=== PATIENT | female | born 1940 | race Caucasian/White ===

== ENCOUNTER 2017-10-05 13:12 | Emergency (ER) | payer OTHER ==
[~2017-10-05] VITALS: Ht 147.3 cm; Wt 60.3 kg
[~2017-10-05 13:12] MED LIST: ALPRAZOLAM0.5 MG PO; APETIGEN ELIXI120 ML PO; ARICEPT10 MG; ARICEPT10 MG PO; AVAPRO75 MG; Apresoline 25MG TAB PO; Apresoline 50MG TAB PO; Aricept 10 MG TABLET PO; CARdura 4MG TABLET PO; CELEXA PO; CELEXA20 MG PO; CREON DR 24,001 EACH; Carafate Susp 1G/10ML BLIST.PACK PO; Coreg PO; Flagyl PO; GLUCOTROL10 MG; GLUCOTROL10 MG PO; GLUCOTROL5 MG/BOTTL; HUMALOG MIX 75/10 ML; HYDRALAZINE HCL50 MG; HYDRALAZINE HCL50 MG PO; IMDUR30 MG; INTEGRA F CAPS1 EACH PO; INTEGRA F CAPSULE PO; ISOSORBIDE DINI20 MG PO; ISOSORBIDE DINI30 MG PO; Isordil 10MG TAB PO; KAYEXALATE15 GM/60 M; LANTUS SOL100 UNIT/1 SUBCUTANEO; LANTUS100 U/ML; LASIX20 MG; LASIX20 MG PO; LASIX40 MG PO; LEVAQUIN500 MG PO; Lantus 1000 U/10 ML SUBCUTANEO; Lasix 20MG TAB PO; MONTELUKAST SOD10 MG PO; NEBUSAL4 ML IH; Neurin-Sl Tablet Sl SL; Neurontin PO; POM (MEDICAMENTO EN PO; PRILOSEC OTC20 MG PO; PRILOSEC20 MG; PRILOSEC20 MG PO; Protonix PO; Pulmicort 0.5 MG/2 M IH; SPIRONOLACTONE25 MG PO; SYNTHROID50 MCG; Synthroid PO; TESSALON PERLE100 M1 PO; TOPROL XL50 MG; TRAMADOL HCL-AP1 TAB; TRENTAL; TRENTAL PO; ULTRACET PO; VASOFLEX D1 CA1 EACH PO; VITAMIN B-1100 M1 PO; VITAMIN B-1100 MG PO; VITAMIN B-122500 MCG SL; XANAX0.25 MG; XARELTO 15MG TAB PO; XOPENEX0.63 MG/3 IH; ZOCOR PO; ZOCOR20 MG; ZOCOR20 MG PO; Zestril PO; [UNRECOGNIZED DRUG - OTHER]
== END 2017-10-05 18:59 | disposition home or self-care (01) ==
LOC: ER 13:12
DX: R55 Syncope and collapse (principal)

== ENCOUNTER 2017-11-23 14:05 | Inpatient (IN) | payer OTHER ==
[~2017-11-23] VITALS: Ht 147.3 cm; Wt 137.0 kg
[2017-11-28] MEDS ORDERED: NORVASC2.5 M1 PO (08:49)
[2017-11-28] MEDS ORDERED: CARVEDILOL6.25 MG PO (08:51)
[2017-11-28] MEDS ORDERED: DOXAZOSIN MESYLA4 MG PO (08:52)
== END 2017-11-28 09:29 | disposition home or self-care (01) | DRG 699 ==
LOC: MEDJ 14:05 → SEC-K 14:51 → MEDJ 19:19
PROC: 0DB68ZX Excision of Stomach, Via Natural or Artificial Opening Endoscopic, Diagnostic (ICD-10-PCS; principal; 2017-11-25)
PROC: 30233N1 Transfusion of Nonautologous Red Blood Cells into Peripheral Vein, Percutaneous Approach (ICD-10-PCS; 2017-11-25)
DX: E11.22 Type 2 diabetes mellitus with diabetic chronic kidney disease (principal); I13.0 Hypertensive heart and chronic kidney disease with heart failure and stage 1 through stage 4 chronic kidney disease, or unspecified chronic kidney disease; E11.65 Type 2 diabetes mellitus with hyperglycemia; I50.89 Other heart failure; N17.8 Other acute kidney failure; D63.1 Anemia in chronic kidney disease; Z79.4 Long term (current) use of insulin; J45.998 Other asthma; K44.9 Diaphragmatic hernia without obstruction or gangrene; J44.9 Chronic obstructive pulmonary disease, unspecified; E03.8 Other specified hypothyroidism; E86.0 Dehydration; I25.10 Atherosclerotic heart disease of native coronary artery without angina pectoris; I48.0 Paroxysmal atrial fibrillation; N18.4 Chronic kidney disease, stage 4 (severe)

== ENCOUNTER → 2018-01-17 | Emergency (ER) | payer OTHER ==
[~2018-01-17] VITALS: Ht 149.9 cm; Wt 61.7 kg
[~2018-01-17] MED LIST changes: +CARVEDILOL6.25 MG PO; +DOXAZOSIN MESYLA4 MG PO; +ELIQUIS2.5 MG; +MUPIROCIN22 GM TOP; +NORVASC2.5 M1 PO
== END | disposition home or self-care (01) ==
LOC: ER 10:30
DX: M25.561 Pain in right knee (principal); S80.01XS Contusion of right knee, sequela; W18.0 Fall due to bumping against object

== ENCOUNTER → 2018-02-24 | Emergency (ER) | payer OTHER ==
[~2018-02-24] VITALS: Ht 147.3 cm; Wt 62.1 kg
[~2018-02-24] MED LIST changes: +CARDURA XL4 MG; +COREG CR10 MG; +HYDRALAZINE HCL10 MG; +HYDRALAZINE HCL25 MG; +INTEGRA CAPSUL1 EACH; +ISOSORBIDE DINI20 MG; +LANTUS SOL100 UNIT/1; +NEURONTIN300 MG; +NORVASC2.5 M1; +PAXIL10 MG/5 ML; +SINGULAIR10 MG; +XANAX2 MG
== END | disposition left against medical advice (07) ==
LOC: ER 13:11
DX: I61.1 Nontraumatic intracerebral hemorrhage in hemisphere, cortical (principal); G93.89 Other specified disorders of brain; S00.03XA Contusion of scalp, initial encounter; W18.09XA Striking against other object with subsequent fall, initial encounter; Y93.89 Activity, other specified; Y92.018 Other place in single-family (private) house as the place of occurrence of the external cause; Y99.8 Other external cause status

== ENCOUNTER 2018-02-28 09:27 | Outpatient (CLI) | payer OTHER | END 2018-02-28 17:00 | disposition home or self-care (01) | LOC: TOM 09:27 | DX: I60.8 Other nontraumatic subarachnoid hemorrhage (principal) ==

== ENCOUNTER 2018-06-13 12:37 | Outpatient (CLI) | payer OTHER | END 2018-06-13 12:44 | disposition home or self-care (01) | LOC: RAD 12:37 | DX: I50.42 Chronic combined systolic (congestive) and diastolic (congestive) heart failure (principal); E04.2 Nontoxic multinodular goiter; R06.09 Other forms of dyspnea ==

== ENCOUNTER 2018-08-23 07:40 | Outpatient (CLI) | payer OTHER | END 2018-08-23 07:41 | disposition home or self-care (01) | LOC: SONOGRAMA 07:40 → MAMO-SONO 08:15 | DX: K80.00 Calculus of gallbladder with acute cholecystitis without obstruction (principal); N18.3 Chronic kidney disease, stage 3 (moderate); R10.11 Right upper quadrant pain ==

== ENCOUNTER 2020-06-19 06:36 | Emergency (ER) | payer OTHER ==
[~2020-06-19] VITALS: Ht 139.7 cm; Wt 75.7 kg
== END 2020-06-19 12:57 | disposition home or self-care (01) ==
LOC: ER 06:36
DX: S42.232A 3-part fracture of surgical neck of left humerus, initial encounter for closed fracture (principal); W18.39XA Other fall on same level, initial encounter; Y93.89 Activity, other specified; Y92.098 Other place in other non-institutional residence as the place of occurrence of the external cause; Y99.8 Other external cause status

== ENCOUNTER 2020-06-26 08:04 | Outpatient (CLI) | payer OTHER ==
[2020-06-26] MEDS ORDERED: CARVEDILOL6.25 MG (11:15)
[2020-06-26] MEDS ORDERED: SYNTHROID75 MCG (11:15)
[2020-06-26] MEDS ORDERED: PAXIL20 MG (11:15)
[2020-06-26] MEDS ORDERED: HYDRALAZINE HCL25 MG (11:16)
[2020-06-26] MEDS ORDERED: ISORDIL10 MG (11:16)
[2020-06-26] MEDS ORDERED: LASIX40 MG (11:16)
[2020-06-26] MEDS ORDERED: CARDURA XL4 MG (11:17)
[2020-06-26] MEDS ORDERED: CRESTOR40 MG (11:17)
[2020-06-26] MEDS ORDERED: ELIQUIS2.5 MG (11:17)
[2020-06-26] MEDS ORDERED: SINGULAIR4 M1 (11:18)
[2020-06-26] MEDS ORDERED: ARICEPT10 MG (11:18)
[2020-06-26] MEDS ORDERED: XANAX1 MG (11:18)
[2020-06-26] MEDS ORDERED: INTEGRA CAPSUL1 EACH (11:19)
[2020-06-26] MEDS ORDERED: LANTUS SOL100 UNIT/1 (11:19)
[2020-06-26] MEDS ORDERED: KAYEXALATE15 GM/60 M (11:19)
[2020-06-26] MEDS ORDERED: NEURONTIN300 MG ×2 (11:19→11:20)
[2020-06-26] MEDS ORDERED: PROBIOTIC1 EAC3 (11:21)
[2020-06-26] MEDS ORDERED: IMODIUM MULTI-1 EACH (11:21)
[2020-06-26] MEDS ORDERED: TYLENOL ARTHRI650 MG PO (16:26)
== END 2020-06-26 08:09 | disposition home or self-care (01) ==
LOC: RAD 08:04
PROVIDERS: ATTEND Orthopaedic Surgery
DX: S42.232A 3-part fracture of surgical neck of left humerus, initial encounter for closed fracture (principal)

== ENCOUNTER 2020-06-26 10:57 | Emergency (ER) | payer OTHER ==
[~2020-06-26] VITALS: Ht 157.5 cm; Wt 76.7 kg
[2020-06-26] MEDS ORDERED: PAXIL20 MG (11:15)
[2020-06-26] MEDS ORDERED: CARVEDILOL6.25 MG (11:15)
[2020-06-26] MEDS ORDERED: SYNTHROID75 MCG (11:15)
[2020-06-26] MEDS ORDERED: HYDRALAZINE HCL25 MG (11:16)
[2020-06-26] MEDS ORDERED: ISORDIL10 MG (11:16)
[2020-06-26] MEDS ORDERED: LASIX40 MG (11:16)
[2020-06-26] MEDS ORDERED: CARDURA XL4 MG (11:17)
[2020-06-26] MEDS ORDERED: ELIQUIS2.5 MG (11:17)
[2020-06-26] MEDS ORDERED: CRESTOR40 MG (11:17)
[2020-06-26] MEDS ORDERED: SINGULAIR4 M1 (11:18)
[2020-06-26] MEDS ORDERED: ARICEPT10 MG (11:18)
[2020-06-26] MEDS ORDERED: XANAX1 MG (11:18)
[2020-06-26] MEDS ORDERED: INTEGRA CAPSUL1 EACH (11:19)
[2020-06-26] MEDS ORDERED: KAYEXALATE15 GM/60 M (11:19)
[2020-06-26] MEDS ORDERED: LANTUS SOL100 UNIT/1 (11:19)
[2020-06-26] MEDS ORDERED: NEURONTIN300 MG ×2 (11:19→11:20)
[2020-06-26] MEDS ORDERED: PROBIOTIC1 EAC3 (11:21)
[2020-06-26] MEDS ORDERED: IMODIUM MULTI-1 EACH (11:21)
[2020-06-26] MEDS ORDERED: TYLENOL ARTHRI650 MG PO (16:26)
== END 2020-06-26 17:53 | disposition home or self-care (01) ==
LOC: ER 10:57
DX: S00.83XA Contusion of other part of head, initial encounter (principal); W18.39XA Other fall on same level, initial encounter; Y93.89 Activity, other specified; Y92.098 Other place in other non-institutional residence as the place of occurrence of the external cause; Y99.8 Other external cause status; R53.1 Weakness

== ENCOUNTER → 2020-07-10 | Outpatient (CLI) | payer OTHER ==
[~2020-07-10] MED LIST changes: +CARVEDILOL6.25 MG; +CRESTOR40 MG; +IMODIUM MULTI-1 EACH; +ISORDIL10 MG; +LASIX40 MG; +PAXIL20 MG; +PROBIOTIC1 EAC3; +SINGULAIR4 M1; +SYNTHROID75 MCG; +TYLENOL ARTHRI650 MG PO; +XANAX1 MG
== END | disposition home or self-care (01) ==
LOC: RAD 08:13
PROVIDERS: ATTEND Orthopaedic Surgery
DX: S42.232A 3-part fracture of surgical neck of left humerus, initial encounter for closed fracture (principal)

== ENCOUNTER 2020-08-11 07:28 | Outpatient (CLI) | payer OTHER | END 2020-08-11 07:33 | disposition home or self-care (01) | LOC: LAB 07:28 | PROVIDERS: ATTEND Orthopaedic Surgery | DX: E21.2 Other hyperparathyroidism (principal); E55.9 Vitamin D deficiency, unspecified; M85.88 Other specified disorders of bone density and structure, other site; E88.89 Other specified metabolic disorders; E56.1 Deficiency of vitamin K ==

== ENCOUNTER 2020-08-11 08:41 | Outpatient (CLI) | payer OTHER | END 2020-08-11 08:45 | disposition home or self-care (01) | LOC: RAD 08:41 | PROVIDERS: ATTEND Orthopaedic Surgery | DX: S42.232D 3-part fracture of surgical neck of left humerus, subsequent encounter for fracture with routine healing (principal) ==